=== PATIENT | female | born 1965 | race Caucasian/White ===

== ENCOUNTER 2020-03-26 21:33 | Emergency (ER) | payer OTHER ==
[~2020-03-26] VITALS: Ht 172.7 cm; Wt 92.1 kg
[2020-03-26 21:40] VITALS: BP 138/79
--- NOTE | 2020-03-26 21:40 | NUR ---
ARRIVAL PT COMPLAINING OF PAIN TO LEFT WRIST S/P TRIPPING AND FALLING. INJURY OCCURRED WHILE TRYING TO PREVENT THE FALL. PT DENIES ANY "POPPING, CRACKING, OR POPPING" TO SITE. PT REPORTING LIMITED ROM TO FINGERS SECONDARY TO PAIN. PT IN NAD WITH RR EVEN AND UNLABORED. PT AMBULATORY TO ROOM 5 WITH STEADY GAIT NOTED.
--- NOTE | 2020-03-26 21:55 | ER.PDOC ---
General Chief Complaint: Requesting Medical Care Stated Complaint: L WRIST INJURY Time seen by MD: 21:50 Source: patient Exam Limitations: no limitations History of Present Illness Initial Comments patient tripped and fell onto outstretched left hand; c/o left wrist pain; incident occurred 30 min [employer] Occurred: just prior to arrival Where: home Severity: moderate Context: fall Location of Injury: (L) wrist Modifying Factors: pain on movement Allergies: Coded Allergies: morphine (Verified Allergy, Unknown, 12/01/19) pregabalin (Verified Allergy, Unknown, 12/01/19) Past Medical History Medical History: no pertinent history, diabetes, hypertension Surgical History: hysterectomy Family History Significant Family History: no pertinent family hx Social History Smoking: non-smoker Alcohol Use: none Drug Use: none Review of Systems Constitutional: denies no symptoms reported, denies see HPI, denies chills, denies diaphoresis, denies fever, denies malaise, denies weakness, denies other EENTM: denies no symptoms reported, denies see HPI, denies eye pain, denies blurred vision, denies tearing, denies double vision, denies ear pain, denies ear discharge, denies nose pain, denies nose congestion, denies throat pain, denies throat swelling, denies mouth pain, denies mouth swelling, denies other Respiratory: denies no symptoms reported, denies see HPI, denies cough, denies orthopnea, denies shortness of breath, denies stridor, denies wheezing, denies other Cardiovascular: denies no symptoms reported, denies see HPI, denies chest pain, denies edema, denies palpitations, denies syncope, denies other Gastrointestinal: denies no symptoms reported, denies see HPI, denies abdominal pain, denies constipation, denies diarrhea, denies nausea, denies vomiting, denies other Genitourinary: denies no symptoms reported, denies see HPI, denies discharge, denies dysuria, denies frequency, denies hematuria, denies pain, denies other Musculoskeletal: see HPI Skin: denies no symptoms reported, denies see HPI, denies change in color, denies change in hair/nails, denies dryness, denies lesions, denies lumps, denies rash, denies other All Other Systems: Reviewed and Negative Physical Exam General Appearance: Alert, No Apparent Distress Hand: nml inspection, non-tender Wrist: tenderness, tenderness snuff box, pain on axial thumb load Neuro: sensation nml, motor nml Vascular: no vascular compromise Forearm/Elbow/Arm: uninjured above wrist Skin: warm/dry Head/ENT: nml inspection, pharynx nml Neck/Back: nml inspection, non-tender Resp/CVS: no resp distress, lungs clear, heart sounds nml, reg. rate & rhythm Abdomen: non-tender, no organomegaly Results/Orders Results/Orders Orders - SAPPHIRE GILES DO Hydrocodone/Acetaminophen (Spur 10mg) (03/26/20 21:56) Hydrocodone/Acetaminophen (Spur 10mg) (03/26/20 22:03) Xr Wrist Lt (03/26/20 22:10) Vital Signs Date Time Temp Pulse Resp B/P (MAP) Pulse Ox O2 Delivery O2 Flow Rate FiO2 03/26/20 21:40 98.1 80 20 03/26/20 21:40 98.1 80 20 03/26/20 21:40 98.1 80 20 138/79 (98) 98 Room Air Administered Medications Medications (Trade) Dose Ordered Sig/Danii Route PRN Reason Start Time Stop Time Status Last Admin Dose Admin Acetaminophen/ Hydrocodone Bitart (Spur 10mg) 1 each STAT STAT PO 03/26/20 21:56 03/26/20 21:58 DC 03/26/20 22:05 1 EACH Progress Progress patient lists morphine as allergy but states she takes hydrocodone several times daily for chronic back pain EKG/XRAY/CT/US XRAY Comments: fx distal radius/ulna; suspect widening DRUJ ER DEPART Departure Time of Disposition: 22:27 Disposition: 01 HOME, SELF-CARE Impression: Primary Impression: Wrist fracture, left Condition: Stable Patient Instructions: Wrist Fracture Referrals: Geno TELLEZ (PCP) PRIMARY CARE PROVIDER Additional Instructions: Maintain splint. Ice. Elevate. Follow up with Dr. Ochoa next week. Alternate Tylenol and Motrin per package instructions every 4 hours as needed for pain. You may augment pain control with mild narcotic as prescribed. Return to ER for any emergent concerns. Duration or Time Spent with Pa: 20 min Problem Qualifiers Primary Impression: Wrist fracture, left Encounter type: initial encounter Fracture type: closed Qualified Codes: S62.102A - Fracture of unspecified carpal bone, left wrist, initial encounter for closed fracture SAPPHIRE GILES DO Mar 26, 2020 21:55
[2020-03-26] MEDS ORDERED: NORCO 10MG PO STA (21:56)
[2020-03-26] MEDS ORDERED: NORCO 10MG PO ONE (22:03)
--- NOTE | 2020-03-26 22:30 | DIREP ---
PROCEDURE:XRAY WRIST MIN 3VW-LT COMPARISON:None. INDICATIONS:fall injury FINDINGS: BONES:There is an acute, horizontally oriented, nondisplaced fracture involving the ulnar styloid process. Additionally, there is an acute, nondisplaced, horizontally fracture through the distal left radial metaphysis. The alignment is grossly anatomic. There appears be a vertical fracture plane extending into the distal articular surface JOINTS:Suspected widening of the DRUJ. SOFT TISSUES:Circumferential soft tissue swelling. OTHER:No additional findings. CONCLUSION:Acute fractures of the distal radius and ulna as above. There is suspected widening of the DRUJ Dictated by: Sushma Castillo M.D. on 03/26/2020 at 10:28 PM
--- NOTE | 2020-03-26 22:41 | NUR ---
SPLINT APPLICATION PT TOLERATED LEFT WRIST VOLAR SPLINT APPLICATION WELL. PT EDUCATED ON THE IMPORTANCE OF MONITORING LEFT HAND FOR COLOR CHANGES, SENSORY, AND NUMBNESS TO HAND. PT INSTRUXTED TO RETURN TO ED. PT VERBALIZED UNDERSTANDING. PT STATES SHE WILL ALSO CALL TO FOLLOW UP WITH ORTHOPEDIC ON MONDAY.
[2020-03-26 22:45] VITALS: BP 130/78
== END 2020-03-26 22:45 | disposition home or self-care (01) ==
LOC: ER 21:33
DX: S52.592A Other fractures of lower end of left radius, initial encounter for closed fracture (principal); W01.0XXA Fall on same level from slipping, tripping and stumbling without subsequent striking against object, initial encounter; Y93.89 Activity, other specified; Y92.098 Other place in other non-institutional residence as the place of occurrence of the external cause; Y99.8 Other external cause status
CPT/HCPCS: 29125; 99283; 73110-LT